=== PATIENT | male | born 1940 | race Caucasian/White ===

== ENCOUNTER 2017-08-25 05:25 | Day surgery (SDC) | payer OTHER ==
[~2017-08-25] VITALS: Ht 177.8 cm; Wt 83.9 kg
--- NOTE | ~2017-08-25 | O ---
[facility] [place] [address] OPERATIVE REPORT Name: MARIA G ALLAN Room #: DEP [facility]#: [id number] Admission: 08/25/17 Attend Phys: John Conklin MD Discharge: 08/25/17 Date of : 38 Report #: [id number] THIS REPORT FOR: //name// CC: Mehdi Guerra MD FAM unknown John Conklin DATE OF SERVICE: 08/25/2017 PREOPERATIVE DIAGNOSIS: Tumor of left lower lid, cheek and lateral canthus. POSTOPERATIVE DIAGNOSES: Tumor of left lower lid, cheek and lateral canthus, basal cell carcinoma. PROCEDURE: Excision of tumor of left lower lid, cheek and lateral canthus with fasciocutaneous flap repair of defect and lateral canthopexy. SURGEON: John Conklin MD SOCIAL WORKER ASSISTANT: None. ANESTHESIA: General. COMPLICATIONS: None. INDICATIONS FOR SURGERY: This pleasant 77-year-old gentleman has a large ulcerative lesion in his lateral left lower lid that extends through the canthus and down onto his cheek. He presents today for excision of this lesion with frozen sections and subsequent repair of that defect. Informed consent was obtained to include, not limit to the potential risk for loss of vision, bleeding, infection, failure to improve the problem, the potential need for further surgery or treatment. Specific discussion was undertaken with respect to the possibility of him requiring a stage reconstruction. DESCRIPTION OF PROCEDURE: The patient was taken to the operating room where general anesthesia was undertaken. The left lower lid, the left lateral canthus, the left cheek, left infratemporal fossa and the right supraclavicular area were all anesthetized with Xylocaine with epinephrine mixed with Marcaine and Wydase. The patient was subsequently prepped and draped in the usual sterile fashion. A fine tip skin marking pen was then utilized to outline the lesion including 2-3 mm of normal appearing tissue. The initial incision included all of the lateral canthus and extended down into the temporal fossa. The specimen was oriented on a drawing for the waiting pathologist. Relatively brisk bleeding [address] [address] OPERATIVE REPORT Name: ALLANMARIA G Room #: DEP [facility] M.R.#: [id number] Admission: 08/25/17 Attend Phys: John Conklin MD Discharge: 08/25/17 Date of : 38 Report #: [id number] ensued after the excision. It was controlled with monopolar cautery. The pathologist snap froze that specimen and found that the lesion did appear to be a basal cell carcinoma, the medial margin was positive. An additional 2-3 mm section of the medial most portion of the lid that was positive was excised and sent out for frozen section analysis. Hemostasis was achieved with diligent pinpoint monopolar cautery. The pathologist found that the new margin was clear. A fasciocutaneous flap was then developed laterally extending temporally towards the external auditory meatus. It was based on the temporalis muscle and the superficial temporal artery. Hemostasis was then re-achieved. The flap was then advanced and closed with multiple interrupted 5-0 Vicryl sutures deep to suspend the flap in the lower lid. The tarsal plate was reapproximated with interrupted 5-0 Vicryl sutures. The lateral canthal angle was reapproximated with interrupted 5-0 Vicryl sutures. It was pexed to the periosteum with a flap. The subcutaneous structures and the skin were then closed with interrupted 6-0 plain gut sutures superficially and Vicryl sutures subcutaneously. The wounds were then cleaned and dressed with erythromycin ophthalmic ointment and the patient subsequently transported to the recovery area having tolerated the procedures well with no anesthetic or operative complications being noted. By: [id number] John Conklin MD /nt
--- NOTE | ~2017-08-25 | S ---
[facility] [place] [address] SURGICAL PATH RPT PROCEDURE Name: MARIA G HUGO Room #: DEP [facility]..#: [id number] Admission: 08/25/17 Date of : 38 Discharge: 08/25/17 Report #: [id number] Path Case #: [id number] PATHOLOGY REPORT COLLECTION DATE: 08/25/2017 RECEIVED DATE: 08/25/2017 SUBMITTING PHYS: Dr. John Conklin OTHER PHYS: SPECIMEN(S) RECEIVED: A.left lower lid lesion B.Left lower lid lesion medial margin * * * * * * * * * * * * FINAL DIAGNOSIS: A. Skin, left lower lid lesion, excisional biopsy: - Invasive basal cell carcinoma at the medial margin on frozen section. B. Skin, left lower lid lesion, medial margin: - The true medial red inked margin is negative for basal cell carcinoma. (SHA:[facility]; 08/26/2017) PATHOLOGIST: Yinka Olivia M.D. REPORT ELECTRONICALLY SIGNED BY: Yinka Olivia M.D. DATE/TIME: 08/26/2017 14:06 * * * * * * * * * * * * GROSS PATHOLOGY: A. Specimen received fresh labeled "Maria G Hugo left lower lid", consists of a portion of lid that measures 1 x 1 x 0.3 cm. It is oriented by Dr. Conklin as medial, lateral and deep. The medial margin is inked red, the lateral margin is inked yellow, and the deep is inked black, and the specimen is sectioned, frozen and submitted in cassette labeled A1. B. Specimen received fresh labeled "Maria G Hugo", consists of a maurice piece of tissue measuring 0.4 x 0.2 cm. It is oriented by Dr. Conklin as the medial margin on the top. The medial margin is inked red and the specimen is frozen and submitted in cassette labeled B1. (SHA:[facility]; 08/25/2017) FROZEN SECTION DIAGNOSIS: (Yinka Olivia M.D.) FSA1 "left lower lid": - Consistent with basal cell carcinoma extending to the medial margin. - These findings were discussed with Dr. Conklin and a written report was placed in patient's chart. [address] [address] SURGICAL PATH RPT PROCEDURE Name: MARIA G HUGO Room #: [facility]#: [id number] Admission: 08/25/17 Date of : 38 Discharge: 08/25/17 Report #: [id number] Path Case #: [id number] FSB1: - No evidence of basal cell carcinoma. - These findings were discussed with Dr. Conklin and a written report was placed in patient's chart. (SHA:[facility]; 08/25/2017) Testing performed by [facility] [address], [place] [address] CLINICAL HISTORY: Left lower lid lesion INITIAL CPT CODE(S): A; 16588, 53960 B; 79885, 13820 Professional services performed by [facility], [address] [place] [address]. Technical services performed by [facility], [address], [address], [place] [address]. [facility] [address] [place] [address] PHONE: [phone] DIRECTOR: Supa Galindo M.D. * * * END OF REPORT * * *
[~2017-08-25 05:25] MED LIST: CELEBREX 200 M200 M1 PO; DEPAKOTE 250MG250 M1 PO; FLOMAX0.4 MG PO; NEURONTIN300 MG PO; OMEPRAZOLE 20 M20 M1 PO; PRAVACHOL20 MG PO; ZYRTEC10 M5 PO
[2017-08-25 10:28] VITALS: BP 149/69
== END 2017-08-25 14:20 | disposition home or self-care (01) ==
LOC: OR 05:25 → TBA 05:26 → OR 13:30
DX: C44.119 Basal cell carcinoma of skin of left eyelid, including canthus (principal); N40.0 Benign prostatic hyperplasia without lower urinary tract symptoms; K21.9 Gastro-esophageal reflux disease without esophagitis; E78.00 Pure hypercholesterolemia, unspecified; G50.0 Trigeminal neuralgia; M19.90 Unspecified osteoarthritis, unspecified site; Z98.890 Other specified postprocedural states
CPT/HCPCS: 50010; 50101; 50398; 51636; 56528; 56531; 62110; 62900; 64037; 70005